=== PATIENT | female | born 1960 | race Hispanic/Latino ===

== ENCOUNTER 2019-09-19 08:47 | Outpatient (CLI) | payer BC ==
--- NOTE | 2019-09-19 09:33 | Ultrasound Report ---
EXAMINATION: Left Limited Breast Ultrasound, 09/19/2019 INDICATION: Abnormal screening mammogram. Screening recall of the left breast COMPARISON: Diagnostic mammogram, 09/06/2019, screening mammogram, 06/19/2019 FINDINGS: Targeted ultrasound evaluation was performed of the area of interest. Sonographic evaluati on of the left breast demonstrates a hypoechoic nodule with slightly indistinct margins at the 11:00 position 4 cm from the nipple. This measures approximately 3-4 mm. There is no associated vascularity . This may correspond to the nodular density seen on the recent screening and diagnostic mammogram. IMPRESSION: Follow up recommendation: Biopsy BI-RADS Category 4: Suspicious for Malignancy. Left breast hypoechoic nodule with slightly indistinc t margins at the 11:00 position as described. It is difficult to determine if this represents a cyst or solid mass due to its very small size. This may correspond to the asymmetry in question seen on th e recent screening and diagnostic mammograms. Recommend ultrasound-guided biopsy and postbiopsy mammo gram to document that the biopsy clip corresponds to the mammographic finding of interest. A normal or "negative" report should not preclude biopsy or follow-up of a clinically suspicious find ing. Signer Name: Kristan Stephen MD Signed: 09/19/2019 9:29 AM Workstation Name: [id number]
== END 2019-09-19 08:48 | disposition home or self-care (01) ==
LOC: SPVWC 08:47
PROVIDERS: ATTEND Surgery
DX: N63.22 Unspecified lump in the left breast, upper inner quadrant (principal)

== ENCOUNTER 2019-09-26 08:24 | Outpatient (CLI) | payer BC ==
--- NOTE | 2019-09-26 09:43 | Ultrasound Report ---
ULTRASOUND-GUIDED LEFT BREAST BIOPSY WITH MARKER HISTORY: ABNORMAL MAMMOGRAM COMPARISON: 09/19/2019, 09/06/2019, 06/19/2019, 06/14/2018, 06/07/2017. CONSENT: Technique, risks and alternatives were discussed with the patient and informed written conse nt obtained. PROCEDURE: The targeted lesion in the 11:00 position, 4 cm from the nipple, in the left breast was located sonog raphically. The finding is very faint and does not appear to be masslike in real-time. It may represe nt a focal area of normal fibroglandular tissue. However, it is felt to correspond with the finding s een on the recent comparison ultrasound. The overlying skin was cleansed with chloro prep and local a nesthesia was obtained with a 1% lidocaine solution. A small dermatotomy was created through which th e 14-gauge spring loaded core biopsy needle was utilized to obtain a total of 5 samples. At the conclusion of the procedure, a [employer] biopsy marker was deployed within the residual mass. Manual pressure was applied at the biopsy site to achieve hemostasis. The incision margins were appro ximated with Steri-Strips. Post procedure care instructions were administered in both verbal and written forms. The patient voic ed understanding and left the breast center in stable, satisfactory condition. POST PROCEDURE LEFT BREAST MAMMOGRAM: Post procedure mammogram show the biopsy marker is located late ral (2.8 cm) to the initial mammographic finding. It is felt that the sonographic finding seen on the diagnostic evaluation does correspond to biopsy area. The left breast was scanned in the upper inner quadrant and no additional sonographic findings were identified during the preprocedure evaluation. IMPRESSION Technically successful ultrasound-guided left breast biopsy with placement of a biopsy marker. Post procedure mammogram show the biopsy marker is located lateral (2.8 cm) to the initial mammograph ic finding. It is felt that the sonographic findings seen on the diagnostic evaluation does correspon d to biopsy area. The left breast was scanned in the upper inner quadrant and no additional sonograph ic findings were identified during the preprocedure evaluation. Should the biopsy results be found to be benign, a six-month follow-up left breast mammogram would be recommended. Signer Name: Pierre Duff MD Signed: 09/26/2019 9:39 AM Workstation Name: [id number]
--- NOTE | 2019-09-26 09:47 | Mammography Report ---
DIGITAL DIAGNOSTIC MAMMOGRAM WITH CAD 09/26/2019 INDICATION: Status post left breast biopsy TECHNIQUE: Digital CC and ML projections of the left breast were obtained. COMPARISON: 09/19/2019, 09/06/2019, 06/19/2019 FINDINGS: Post procedure mammograms show the biopsy marker is located lateral (2.8 cm) to the initial mammograp hic finding. It is felt that the sonographic finding seen on the prior ultrasound evaluation does cor respond to biopsied area. The left breast was scanned in the upper inner quadrant and no additional s onographic findings were identified during the preprocedure evaluation. IMPRESSION: Post procedure mammograms show the biopsy marker is located lateral (2.8 cm) to the initial mammograp hic finding. It is felt that the sonographic finding seen on the prior ultrasound evaluation does cor respond to biopsied area. The left breast was scanned in the upper inner quadrant and no additional s onographic findings were identified during the preprocedure evaluation. Should the biopsy results be found to be benign, a six-month follow-up left breast CC and ML mammogram would be recommended. BI-RADS Category 3: Probably Benign. A "normal" or negative report should not discourage follow up or biopsy of a clinically significant f inding. A written summary of these findings will be mailed to the patient. The patient will be entered into a mammography reporting system which will generate a reminder letter for the patient's next appointmen t at the appropriate interval. FURTHER INFORMATION: According to the [employer], yearly mammograms are recommend ed starting at age 40 and continuing as long as a woman is in good health. Breast MRI is recommended for women with an approximately 20-25% or greater lifetime risk of breast cancer, including women wi th a strong family history of breast or ovarian cancer and women who have been treated for Hodgkin's disease. Signer Name: Pierre Duff MD Signed: 09/26/2019 9:42 AM Workstation Name: [id number]
== END 2019-09-26 08:25 | disposition home or self-care (01) ==
LOC: SPVWC 08:24
PROVIDERS: ATTEND Surgery
DX: N63.22 Unspecified lump in the left breast, upper inner quadrant (principal); R92.8 Other abnormal and inconclusive findings on diagnostic imaging of breast; R92.2 Inconclusive mammogram; N60.12 Diffuse cystic mastopathy of left breast
CPT/HCPCS: 88305